=== PATIENT | female | born 1960 | race Caucasian/White ===

== ENCOUNTER → 2017-05-19 | Day surgery (SDC) | payer BC ==
[~2017-05-19] MED LIST: ALBUTEROL17 GM INH; AMOXICILLIN500 M1 PO; HYCODAN60 ML 5MG/ PO; KEFLEX500 MG PO; LORTAB 10/500 T1 TAB PO; OXYCODONE-APAP1 EACH PO; PREDNISONE PO; SYNTHROID300 MCG PO
--- NOTE | ~2017-05-19 | OR ---
Unit #: [id number] #: [id number] Patient: ANUPAMA BAE [id number] [address] [address] [id number] MR#: [id number] NAME: ANUPAMA BAE ROOM: Date of Procedure: 05/19/2017 Admission Date: 05/19/2017 Surgeon: Ming Worthington M.D. : 1960 Attending Physician: Ming Worthington M.D. Referring Physician: Ming Worthington M.D. Primary Care Physician: Ismael March M.D. OPERATIVE REPORT PROCEDURE PERFORMED Colonoscopy with biopsy. INDICATIONS FOR PROCEDURE A 57-year-old female with history of colon polyp, undergoing colonoscopy for surveillance. MEDICATIONS Monitored anesthesia. POSTOPERATIVE FINDINGS 1. Colonoscopy completed to cecum. Prep was good. 2. Severe active ulcers likely seen in the ascending colon and the cecum. Biopsies taken. 3. No polyps, masses, or colitis. 4. Small internal hemorrhoids. PLAN 1. Given her history, I would recommend a repeat colonoscopy in 5 years. 2. Follow up on the pathology report. DESCRIPTION OF PROCEDURE The patient was explained of the procedure, risks, and benefits along with risks and benefits of anesthesia. She was brought to the endoscopy room. Propofol anesthesia was given. Rectal exam was done, which was normal. Colonoscope was lubricated, passed up the rectum, advanced under direct vision all the way to the cecum. Cecum was identified by ileocecal valve and appendiceal orifice. Small ulcer seen as described. Biopsies taken. Gently, I pulled the scope of the patient's body. She tolerated it well. Dictated by... Roosevelt Lee/soledad TD: 05/20/2017 00:53 JOB #: [id number] CC: Ismael March M.D. Unit #: [id number] #: [id number] Patient: ANUPAMA BAE OPERATIVE REPORT Page 1 of 1 X Ming Worthington MD X PROCEDURE OPERATIVE NOTE
== END | disposition home or self-care (01) ==
LOC: COPS 12:38
DX: Z12.11 Encounter for screening for malignant neoplasm of colon (principal); K64.8 Other hemorrhoids; E03.9 Hypothyroidism, unspecified; J44.9 Chronic obstructive pulmonary disease, unspecified; F17.210 Nicotine dependence, cigarettes, uncomplicated; Z88.1 Allergy status to other antibiotic agents; Z86.010 Personal history of colon polyps; Z79.891 Long term (current) use of opiate analgesic; Z79.899 Other long term (current) drug therapy; Z90.710 Acquired absence of both cervix and uterus; Z90.49 Acquired absence of other specified parts of digestive tract; Z98.51 Tubal ligation status; Z98.890 Other specified postprocedural states
CPT/HCPCS: 88305